=== PATIENT | female | born 1950 | race Caucasian/White ===

== ENCOUNTER 2024-07-20 10:39 | Inpatient (IN) | payer MEDICARE, OTHER ==
[~2024-07-20 10:39] MED LIST: ALBU18HF12 IH; ALPR0.5T8 PO; AMLO10TA55 PO; ATOR-2 PO; ESZO2TAB31 PO; FLUT12AE3 IH; LEVO25TA9 PO; LOSA-381 PO; METF-1211 PO; OMAL75SY SQ; OMEP40CA21 PO; QUET300T19 PO; QUET50TA24 PO; UMEC62.5 IH; VALB80CA PO
[2024-07-20] MEDS ORDERED: ONDANSETRON HCL 4 MG/2 ML VIAL IVP PRN (10:45)
[2024-07-20] MEDS ORDERED: ALBUTEROL SULFATE 2.5 MG/0.5 ML NEB SOLUTION NEB PRN (10:45)
[2024-07-20] MEDS: SODIUM CHLORIDE 0.9% 1,000 ML IV ONE (10:45)
[2024-07-20] MEDS ORDERED: DEXTROSE 50%-WATER 25 GM/50 ML SYRINGE IVP PRN (11:00)
[2024-07-20 13:30] VITALS: BP 137/62; PULSE 77; RESP 17; TEMP 98.7; O2SAT 96
[2024-07-20 14:15] LABS: BASOPHILS % (AUTO) 0.3 % (0.0-2.0); EOSINOPHILS % (AUTO) 1.3 % (1.0-6.0); HEMATOCRIT 28.5 % (36-46); HEMOGLOBIN 9.5 g/dL (12.0-16.0); LYMPHOCYTES # (AUTO) 0.7 K/uL (1.0-4.8); LYMPHOCYTES % (AUTO) 8.2 % (22.0-44.0); MEAN CORPUSCULAR HEMOGLOBIN 29.4 pg (26.0-34.0); MEAN CORPUSCULAR HGB CONC 33.3 G/dL (31.0-37.0); MEAN CORPUSCULAR VOLUME 88 fL (80-100); MONOCYTES # (AUTO) 0.5 K/uL (0.1-1.0); MONOCYTES % (AUTO) 6.3 % (2.0-9.0); NEUTROPHILS # (AUTO) 6.9 K/uL (1.8-7.7); NEUTROPHILS % (AUTO) 83.9 % (40.0-70.0); PLATELET COUNT (AUTO) 290 K/uL (150-450); RED BLOOD CELL COUNT(AUTO) 3.23 MIL/uL (4.00-5.20); RED CELL DISTRIBUTION WIDTH 18.8 % (11.5-14.5); WHITE BLOOD COUNT (AUTO) 8.3 K/uL (4.5-11.0)
[2024-07-20 14:41] LABS: CALCIUM, TOTAL 9.3 mg/dL (8.8-10.5); CREATININE 1.33 mg/dL (0.60-1.30); POTASSIUM 4.1 mmol/L (3.5-5.1); THYROID STIMULATING HORMONE 1.68 uIU/mL (0.36-3.74)
[2024-07-20] MEDS: OSELTAMIVIR PHOSPHATE 30 MG CAPSULE PO SCH (15:30)
[2024-07-20] MEDS: HEPARIN SODIUM,PORCINE 5,000 UNITS/ML VIAL SQ SCH (16:00)
[2024-07-20 19:26] LABS: APPEARANCE,URINE CLEAR (CLEAR); BILIRUBIN,URINE NEGATIVE (NEGATIVE); COLOR,URINE LIGHT YELLOW (YELLOW); GLUCOSE, URINE (UA) NEGATIVE (NEGATIVE); KETONES,URINE NEGATIVE (NEGATIVE); LEUKOCYTE ESTERASE ,URINE TRACE (NEGATIVE); NITRATE,URINE NEGATIVE (NEGATIVE); OCCULT BLOOD,URINE NEGATIVE (NEGATIVE); PROTEIN,URINE NEGATIVE (NEGATIVE); SPECIFIC GRAVITIY, URINE 1.009 (1.003-1.030); UROBILINOGEN,URINE <=1.0 mg/dL (<=1.0)
[2024-07-20 19:35] LABS: RBC,URINE 0-2 /HPF (0-2)
[2024-07-20 19:36] LABS: BACTERIA,URINE Few /HPF (None Seen); SQUAMOUS EPITHELIAL CELL,UR Few /LPF (None Seen)
[2024-07-20 19:44] VITALS: BP 152/63; PULSE 89; RESP 17; TEMP 100; O2SAT 96
[2024-07-20] MEDS: INSULIN LISPRO 100 UNITS/ML SQ PRN (20:42)
[2024-07-20] MEDS: ACETAMINOPHEN 325 MG TABLET PO PRN (20:43)
[2024-07-20] MEDS: DOCUSATE SODIUM 100 MG CAPSULE PO SCH (20:43)
[2024-07-20 22:51] LABS: GLUCOMETER DEV NAME(LOC) 6S.1D; GLUCOSE,POINT OF CARE 138 MG/DL (70-110)
[2024-07-20 22:51] LABS: GLUCOMETER DEV NAME(LOC) 6S.1D; GLUCOSE,POINT OF CARE 142 MG/DL (70-110)
[2024-07-21 05:37] VITALS: BP 148/62; PULSE 77; RESP 18; TEMP 99.8; O2SAT 95
[2024-07-21 06:41] LABS: GLUCOMETER DEV NAME(LOC) 6N.2B; GLUCOSE,POINT OF CARE 137 MG/DL (70-110)
[2024-07-21 08:21] VITALS: BP 152/71; PULSE 85; RESP 20; TEMP 99.6; O2SAT 96
[2024-07-21] MEDS: FAMOTIDINE 20 MG TABLET PO SCH (09:30)
[2024-07-21 12:10] LABS: GLUCOMETER DEV NAME(LOC) 6N.1B; GLUCOSE,POINT OF CARE 175 MG/DL (70-110)
[2024-07-21] MEDS ORDERED: QUET200T30 PO (14:07)
[2024-07-21] MEDS ORDERED: ESCI-8 PO (14:08)
[2024-07-21] MEDS: AmLODIPine BESYLATE 2.5 MG TABLET PO SCH (14:58)
[2024-07-21] MEDS: SODIUM CHLORIDE 0.9% 1,000 ML IV ONE (14:58)
[2024-07-21 18:21] LABS: GLUCOMETER DEV NAME(LOC) 6S.1D; GLUCOSE,POINT OF CARE 150 MG/DL (70-110)
[2024-07-21 19:15] VITALS: BP 178/81; PULSE 100; RESP 18; TEMP 99.5; O2SAT 93
[2024-07-21] MEDS ORDERED: QUEtiapine FUMARATE 200 MG TABLET PO SCH (21:00)
[2024-07-21] MEDS: QUEtiapine FUMARATE 200 MG TABLET PO SCH (21:12)
[2024-07-21 21:17] VITALS: BP 138/71; PULSE 99; RESP 18; TEMP 99.5; O2SAT 94
[2024-07-21 23:21] VITALS: TEMP 98
[2024-07-22 04:22] VITALS: BP 156/71; PULSE 91; RESP 18; TEMP 98.2; O2SAT 95
[2024-07-22 07:50] LABS: GLUCOMETER DEV NAME(LOC) 6N.2B; GLUCOSE,POINT OF CARE 180 MG/DL (70-110)
[2024-07-22 07:55] LABS: GLUCOMETER DEV NAME(LOC) 6N.1B; GLUCOSE,POINT OF CARE 142 MG/DL (70-110)
[2024-07-22 08:03] VITALS: BP 145/71; PULSE 84; RESP 18; TEMP 98.2; O2SAT 95
[2024-07-22 08:05] LABS: ANION GAP 10 mmol/L (8-16); CALCIUM, TOTAL 9.2 mg/dL (8.8-10.5); CARBON DIOXIDE 24 mmol/L (22-29); CHLORIDE 103 mmol/L (98-107); CREATININE 0.88 mg/dL (0.60-1.30); GLOMERULAR FILTR. RATE CALC > 60 mL/min (>60); GLUCOSE,RANDOM 143 mg/dL (70-110); POTASSIUM 3.7 mmol/L (3.5-5.1); SODIUM SERUM 137 mmol/L (136-145); UREA NITROGEN, BLOOD 17 mg/dL (7-18)
[2024-07-22] MEDS: ESCITALOPRAM OXALATE 10 MG TABLET PO SCH (08:08)
[2024-07-22 15:46] LABS: GLUCOMETER DEV NAME(LOC) 6N.1B; GLUCOSE,POINT OF CARE 160 MG/DL (70-110)
[2024-07-22 15:54] VITALS: BP 138/68; PULSE 82; RESP 18; TEMP 98; O2SAT 96
[2024-07-22 19:44] VITALS: BP 153/78; PULSE 90; RESP 20; TEMP 99.3; O2SAT 95
[2024-07-23 01:06] LABS: HEPATITIS C AB (EIA) Reactive (Non Reactive)
[2024-07-23 03:48] VITALS: BP 145/70; PULSE 88; RESP 18; TEMP 98.5; O2SAT 94
[2024-07-23 06:30] LABS: GLUCOMETER DEV NAME(LOC) 6N.1B; GLUCOSE,POINT OF CARE 110 MG/DL (70-110)
[2024-07-23 10:16] LABS: GLUCOMETER DEV NAME(LOC) 6S.1D; GLUCOSE,POINT OF CARE 205 MG/DL (70-110)
[2024-07-23 20:40] LABS: GLUCOMETER DEV NAME(LOC) 6S.2; GLUCOSE,POINT OF CARE 169 MG/DL (70-110)
[2024-07-24 02:31] VITALS: BP 144/78; PULSE 99; RESP 18; TEMP 98; O2SAT 96
[2024-07-24 02:46] LABS: GLUCOMETER DEV NAME(LOC) 6S.1D; GLUCOSE,POINT OF CARE 130 MG/DL (70-110)
[2024-07-24 15:51] VITALS: BP 136/55; PULSE 82; RESP 18; TEMP 98.1; O2SAT 96
[2024-07-24 20:00] VITALS: BP 137/69; PULSE 75; RESP 20; TEMP 98.7; O2SAT 95
[2024-07-24] MEDS: BENZONATATE 100 MG CAPSULE PO PRN (21:08)
[2024-07-24 21:40] LABS: GLUCOMETER DEV NAME(LOC) 6S.1D; GLUCOSE,POINT OF CARE 143 MG/DL (70-110)
[2024-07-24 21:46] LABS: GLUCOMETER DEV NAME(LOC) 6S.2; GLUCOSE,POINT OF CARE 164 MG/DL (70-110)
[2024-07-25 03:46] VITALS: BP 121/63; PULSE 73; RESP 18; TEMP 98.2; O2SAT 98
[2024-07-25] MEDS: LEVOFLOXACIN 750 MG TABLET PO SCH (08:17)
[2024-07-25 12:13] VITALS: BP 135/64; PULSE 79; RESP 18; TEMP 98.7; O2SAT 98
[2024-07-25 12:56] LABS: GLUCOMETER DEV NAME(LOC) 6N.2B; GLUCOSE,POINT OF CARE 110 MG/DL (70-110)
[2024-07-25] MEDS ORDERED: SODIUM CHLORIDE 0.9% 250 ML IV ONE (18:37)
[2024-07-25 19:55] LABS: GLUCOMETER DEV NAME(LOC) 6S.2; GLUCOSE,POINT OF CARE 114 MG/DL (70-110)
[2024-07-25 19:55] LABS: GLUCOMETER DEV NAME(LOC) 6S.2; GLUCOSE,POINT OF CARE 119 MG/DL (70-110)
[2024-07-25 20:24] VITALS: BP 117/62; PULSE 74; RESP 18; TEMP 98.5; O2SAT 97
[2024-07-25 22:01] LABS: GLUCOMETER DEV NAME(LOC) 6N.2B; GLUCOSE,POINT OF CARE 144 MG/DL (70-110)
[2024-07-26 05:04] VITALS: BP 134/60; PULSE 66; RESP 20; TEMP 98.4; O2SAT 98
[2024-07-26 05:35] LABS: GLUCOMETER DEV NAME(LOC) 6S.1D; GLUCOSE,POINT OF CARE 121 MG/DL (70-110)
[2024-07-26 08:31] VITALS: BP 142/67; PULSE 81; RESP 18; TEMP 98.5; O2SAT 96
[2024-07-26 12:06] LABS: GLUCOMETER DEV NAME(LOC) 6S.1D; GLUCOSE,POINT OF CARE 139 MG/DL (70-110)
[2024-07-26 18:01] LABS: GLUCOMETER DEV NAME(LOC) 6S.2; GLUCOSE,POINT OF CARE 106 MG/DL (70-110)
[2024-07-26 20:03] VITALS: BP 142/77; PULSE 100; RESP 20; TEMP 98.8; O2SAT 98
[2024-07-26 20:50] LABS: GLUCOMETER DEV NAME(LOC) 6S.1D; GLUCOSE,POINT OF CARE 128 MG/DL (70-110)
[2024-07-27 04:13] VITALS: BP 153/78; PULSE 99; RESP 20; TEMP 98.9; O2SAT 98
[2024-07-27 05:45] LABS: GLUCOMETER DEV NAME(LOC) 6S.2; GLUCOSE,POINT OF CARE 114 MG/DL (70-110)
[2024-07-27 08:08] VITALS: BP 153/78; PULSE 89; RESP 18; TEMP 98.7; O2SAT 98
[2024-07-27 09:47] VITALS: BP 144/68; PULSE 97; RESP 20; TEMP 98.4; O2SAT 98
[2024-07-27 15:59] VITALS: BP 146/75; PULSE 96; RESP 18; TEMP 99.1; O2SAT 97
[2024-07-27 17:46] LABS: GLUCOMETER DEV NAME(LOC) 6S.1D; GLUCOSE,POINT OF CARE 144 MG/DL (70-110)
[2024-07-27 20:25] VITALS: BP 141/77; PULSE 90; RESP 20; TEMP 97.7; O2SAT 97
[2024-07-27 21:35] LABS: GLUCOMETER DEV NAME(LOC) 6S.1D; GLUCOSE,POINT OF CARE 117 MG/DL (70-110)
[2024-07-27 22:00] LABS: GLUCOMETER DEV NAME(LOC) 6S.2; GLUCOSE,POINT OF CARE 146 MG/DL (70-110)
[2024-07-28 04:04] VITALS: BP 129/64; PULSE 74; RESP 18; TEMP 98.1; O2SAT 97
[2024-07-28 07:46] LABS: GLUCOMETER DEV NAME(LOC) 6S.2; GLUCOSE,POINT OF CARE 116 MG/DL (70-110)
[2024-07-28 08:57] VITALS: BP 128/57; PULSE 81; RESP 18; TEMP 98.1; O2SAT 97
[2024-07-28 11:55] LABS: GLUCOMETER DEV NAME(LOC) 6S.2; GLUCOSE,POINT OF CARE 146 MG/DL (70-110)
[2024-07-28 13:15] LABS: BASOPHILS % (AUTO) 1.2 % (0.0-2.0); EOSINOPHILS % (AUTO) 2.7 % (1.0-6.0); HEMATOCRIT 33.5 % (36-46); HEMOGLOBIN 10.8 g/dL (12.0-16.0); LYMPHOCYTES % (AUTO) 19.5 % (22.0-44.0); MEAN CORPUSCULAR HEMOGLOBIN 28.5 pg (26.0-34.0); MEAN CORPUSCULAR HGB CONC 32.3 G/dL (31.0-37.0); MEAN CORPUSCULAR VOLUME 88 fL (80-100); MONOCYTES # (AUTO) 0.5 K/uL (0.1-1.0); MONOCYTES % (AUTO) 8.6 % (2.0-9.0); NEUTROPHILS # (AUTO) 3.7 K/uL (1.8-7.7); PLATELET COUNT (AUTO) 410 K/uL (150-450); RED CELL DISTRIBUTION WIDTH 18.9 % (11.5-14.5); WHITE BLOOD COUNT (AUTO) 5.4 K/uL (4.5-11.0)
[2024-07-28 13:25] LABS: CALCIUM, TOTAL 9.2 mg/dL (8.8-10.5); CREATININE 1.26 mg/dL (0.60-1.30); POTASSIUM 4.1 mmol/L (3.5-5.1)
[2024-07-28 18:00] VITALS: BP 125/72; PULSE 89; RESP 18; TEMP 97.9; O2SAT 97
[2024-07-28 18:46] LABS: GLUCOMETER DEV NAME(LOC) 6N.2B; GLUCOSE,POINT OF CARE 116 MG/DL (70-110)
[2024-07-28 20:50] VITALS: BP 134/79; PULSE 90; RESP 18; TEMP 97.7; O2SAT 98
[2024-07-29 04:57] VITALS: BP 127/65; PULSE 84; RESP 18; TEMP 98.6; O2SAT 99
[2024-07-29 08:06] LABS: GLUCOMETER DEV NAME(LOC) 6N.2B; GLUCOSE,POINT OF CARE 163 MG/DL (70-110)
[2024-07-29 08:59] VITALS: BP 126/60; PULSE 87; RESP 18; TEMP 96.6; O2SAT 99
[2024-07-29 11:30] LABS: GLUCOMETER DEV NAME(LOC) 6S.1D; GLUCOSE,POINT OF CARE 187 MG/DL (70-110)
[2024-07-29 11:36] LABS: GLUCOMETER DEV NAME(LOC) 6N.2B; GLUCOSE,POINT OF CARE 150 MG/DL (70-110)
[2024-07-29 11:50] LABS: GLUCOMETER DEV NAME(LOC) 6S.2; GLUCOSE,POINT OF CARE 130 MG/DL (70-110)
[2024-07-29 14:54] VITALS: BP 139/85; PULSE 95; RESP 18; TEMP 98.3; O2SAT 97
[2024-07-29 19:42] VITALS: BP 113/59; PULSE 87; RESP 18; TEMP 98.3; O2SAT 97
[2024-07-29 22:56] LABS: GLUCOMETER DEV NAME(LOC) 6N.2B; GLUCOSE,POINT OF CARE 121 MG/DL (70-110)
[2024-07-29 22:56] LABS: GLUCOMETER DEV NAME(LOC) 6N.2B; GLUCOSE,POINT OF CARE 189 MG/DL (70-110)
[2024-07-30 04:10] VITALS: BP 121/63; PULSE 86; RESP 19; TEMP 98.6; O2SAT 98
[2024-07-30 07:15] VITALS: BP 110/52; PULSE 71; RESP 18; TEMP 98.2; O2SAT 99
[2024-07-30 07:40] LABS: GLUCOMETER DEV NAME(LOC) 6S.1D; GLUCOSE,POINT OF CARE 127 MG/DL (70-110)
[2024-07-30 14:16] LABS: GLUCOMETER DEV NAME(LOC) 6S.1D; GLUCOSE,POINT OF CARE 135 MG/DL (70-110)
[2024-07-30 16:09] VITALS: BP 108/63; PULSE 76; RESP 18; TEMP 98; O2SAT 99
[2024-07-30 18:16] LABS: GLUCOMETER DEV NAME(LOC) 6S.1D; GLUCOSE,POINT OF CARE 119 MG/DL (70-110)
[2024-07-30 20:15] VITALS: BP 119/61; PULSE 68; RESP 18; TEMP 98.8; O2SAT 99
[2024-07-31 04:07] VITALS: BP 119/58; PULSE 69; RESP 18; TEMP 98.1; O2SAT 98
[2024-07-31 07:41] VITALS: BP 142/79; PULSE 72; RESP 18; TEMP 97.5; O2SAT 100
[2024-07-31 18:39] VITALS: BP 113/53; PULSE 76; RESP 18; TEMP 97.8; O2SAT 100
[2024-07-31 19:06] LABS: GLUCOMETER DEV NAME(LOC) 6S.2; GLUCOSE,POINT OF CARE 148 MG/DL (70-110)
[2024-07-31 19:07] LABS: GLUCOMETER DEV NAME(LOC) 6S.2; GLUCOSE,POINT OF CARE 152 MG/DL (70-110)
[2024-07-31 19:56] VITALS: BP 122/58; PULSE 70; RESP 18; TEMP 98.1; O2SAT 99
[2024-08-01 04:15] VITALS: BP 115/51; PULSE 72; RESP 18; TEMP 98; O2SAT 98
[2024-08-01 06:55] LABS: BASOPHILS % (AUTO) 1.2 % (0.0-2.0); EOSINOPHILS % (AUTO) 4.6 % (1.0-6.0); HEMATOCRIT 34.9 % (36-46); HEMOGLOBIN 11.3 g/dL (12.0-16.0); LYMPHOCYTES # (AUTO) 1.3 K/uL (1.0-4.8); LYMPHOCYTES % (AUTO) 32.5 % (22.0-44.0); MEAN CORPUSCULAR HGB CONC 32.4 G/dL (31.0-37.0); MEAN CORPUSCULAR VOLUME 90 fL (80-100); MONOCYTES # (AUTO) 0.4 K/uL (0.1-1.0); MONOCYTES % (AUTO) 11.1 % (2.0-9.0); NEUTROPHILS % (AUTO) 50.6 % (40.0-70.0); PLATELET COUNT (AUTO) 301 K/uL (150-450); RED CELL DISTRIBUTION WIDTH 19.3 % (11.5-14.5); WHITE BLOOD COUNT (AUTO) 3.9 K/uL (4.5-11.0)
[2024-08-01 07:12] LABS: CALCIUM, TOTAL 9.8 mg/dL (8.8-10.5); CREATININE 1.22 mg/dL (0.60-1.30); POTASSIUM 4.2 mmol/L (3.5-5.1)
[2024-08-01 08:09] VITALS: BP 130/57; PULSE 63; RESP 18; TEMP 97.8; O2SAT 99
[2024-08-01 11:55] LABS: GLUCOMETER DEV NAME(LOC) 6S.2; GLUCOSE,POINT OF CARE 158 MG/DL (70-110)
[2024-08-01 15:32] VITALS: BP 115/59; PULSE 89; RESP 18; TEMP 98.5; O2SAT 97
[2024-08-01 20:31] LABS: GLUCOMETER DEV NAME(LOC) 6N.2B; GLUCOSE,POINT OF CARE 171 MG/DL (70-110)
[2024-08-01 21:14] VITALS: BP 132/66; PULSE 84; RESP 20; TEMP 99.5; O2SAT 99
[2024-08-02 03:26] LABS: GLUCOMETER DEV NAME(LOC) 6S.2; GLUCOSE,POINT OF CARE 136 MG/DL (70-110)
[2024-08-02 05:11] VITALS: BP 135/67; PULSE 77; RESP 18; TEMP 98; O2SAT 99
[2024-08-02 07:20] LABS: GLUCOMETER DEV NAME(LOC) 6S.2; GLUCOSE,POINT OF CARE 112 MG/DL (70-110)
[2024-08-02 08:21] VITALS: BP 134/65; PULSE 75; RESP 18; TEMP 98; O2SAT 97
[2024-08-02 12:42] LABS: GLUCOMETER DEV NAME(LOC) 6S.2; GLUCOSE,POINT OF CARE 140 MG/DL (70-110)
[2024-08-02 12:42] LABS: GLUCOMETER DEV NAME(LOC) 6S.1D; GLUCOSE,POINT OF CARE 129 MG/DL (70-110)
[2024-08-02 12:42] LABS: GLUCOMETER DEV NAME(LOC) 6S.2; GLUCOSE,POINT OF CARE 109 MG/DL (70-110)
[2024-08-02 12:42] LABS: GLUCOMETER DEV NAME(LOC) 6S.2; GLUCOSE,POINT OF CARE 120 MG/DL (70-110)
[2024-08-02 16:11] VITALS: BP 121/62; PULSE 78; RESP 18; TEMP 98; O2SAT 97
[2024-08-02 19:39] VITALS: BP 125/68; PULSE 68; RESP 18; TEMP 98.7; O2SAT 99
[2024-08-03 03:39] VITALS: BP 137/80; PULSE 71; RESP 18; TEMP 97.7; O2SAT 99
[2024-08-03 06:11] LABS: GLUCOMETER DEV NAME(LOC) 6S.2; GLUCOSE,POINT OF CARE 130 MG/DL (70-110)
[2024-08-03 08:37] VITALS: BP 130/69; PULSE 69; RESP 18; TEMP 94.8; O2SAT 99
[2024-08-03 16:00] VITALS: BP 154/85; PULSE 82; TEMP 97.7
[2024-08-03 17:05] LABS: GLUCOMETER DEV NAME(LOC) 6N.2B; GLUCOSE,POINT OF CARE 213 MG/DL (70-110)
[2024-08-03 17:05] LABS: GLUCOMETER DEV NAME(LOC) 6N.2B; GLUCOSE,POINT OF CARE 163 MG/DL (70-110)
[2024-08-03 17:05] LABS: GLUCOMETER DEV NAME(LOC) 6N.2B; GLUCOSE,POINT OF CARE 155 MG/DL (70-110)
[2024-08-03 19:40] VITALS: BP 122/57; PULSE 84; RESP 18; TEMP 99.1; O2SAT 99
[2024-08-03 20:06] LABS: GLUCOMETER DEV NAME(LOC) 6S.1D; GLUCOSE,POINT OF CARE 108 MG/DL (70-110)
[2024-08-03 20:06] LABS: GLUCOMETER DEV NAME(LOC) 6S.1D; GLUCOSE,POINT OF CARE 215 MG/DL (70-110)
[2024-08-03 23:46] LABS: GLUCOMETER DEV NAME(LOC) 6S.1D; GLUCOSE,POINT OF CARE 167 MG/DL (70-110)
[2024-08-04 04:19] VITALS: BP 122/64; PULSE 73; RESP 18; TEMP 97.4; O2SAT 98
[2024-08-04 08:01] VITALS: BP 118/58; PULSE 82; RESP 18; TEMP 97.8; O2SAT 97
[2024-08-04 08:46] LABS: GLUCOMETER DEV NAME(LOC) 6N.2B; GLUCOSE,POINT OF CARE 130 MG/DL (70-110)
[2024-08-04 17:10] LABS: GLUCOMETER DEV NAME(LOC) 6S.1D; GLUCOSE,POINT OF CARE 199 MG/DL (70-110)
[2024-08-04 17:10] LABS: GLUCOMETER DEV NAME(LOC) 6S.1D; GLUCOSE,POINT OF CARE 148 MG/DL (70-110)
[2024-08-04 20:14] VITALS: BP 117/57; PULSE 78; RESP 19; TEMP 98.5; O2SAT 99
[2024-08-05 00:11] LABS: GLUCOMETER DEV NAME(LOC) 6S.1D; GLUCOSE,POINT OF CARE 154 MG/DL (70-110)
[2024-08-05 04:46] VITALS: BP 125/58; PULSE 67; RESP 18; TEMP 98.4; O2SAT 98
[2024-08-05 08:12] VITALS: BP 125/52; PULSE 68; RESP 18; TEMP 98.5; O2SAT 98
[2024-08-05 08:26] LABS: BASOPHILS % (AUTO) 1.3 % (0.0-2.0); EOSINOPHILS % (AUTO) 3.3 % (1.0-6.0); HEMATOCRIT 34.3 % (36-46); HEMOGLOBIN 11.4 g/dL (12.0-16.0); LYMPHOCYTES % (AUTO) 20.7 % (22.0-44.0); MEAN CORPUSCULAR HEMOGLOBIN 29.8 pg (26.0-34.0); MEAN CORPUSCULAR HGB CONC 33.3 G/dL (31.0-37.0); MEAN CORPUSCULAR VOLUME 90 fL (80-100); MONOCYTES # (AUTO) 0.5 K/uL (0.1-1.0); MONOCYTES % (AUTO) 10.1 % (2.0-9.0); NEUTROPHILS # (AUTO) 3.1 K/uL (1.8-7.7); NEUTROPHILS % (AUTO) 64.6 % (40.0-70.0); PLATELET COUNT (AUTO) 291 K/uL (150-450); RED BLOOD CELL COUNT(AUTO) 3.83 MIL/uL (4.00-5.20); RED CELL DISTRIBUTION WIDTH 19.5 % (11.5-14.5); WHITE BLOOD COUNT (AUTO) 4.8 K/uL (4.5-11.0)
[2024-08-05 08:42] LABS: CALCIUM, TOTAL 9.6 mg/dL (8.8-10.5); POTASSIUM 4.2 mmol/L (3.5-5.1)
[2024-08-05 11:35] LABS: GLUCOMETER DEV NAME(LOC) 6N.2B; GLUCOSE,POINT OF CARE 152 MG/DL (70-110)
[2024-08-05 15:54] VITALS: BP 111/59; PULSE 82; RESP 18; TEMP 98.9; O2SAT 98
[2024-08-05 16:50] LABS: GLUCOMETER DEV NAME(LOC) 6N.2B; GLUCOSE,POINT OF CARE 127 MG/DL (70-110)
[2024-08-05 18:06] LABS: HEPATITIS C RT-PCR,QNT HCV Not Detected IU/mL
[2024-08-05 19:37] VITALS: BP 122/58; PULSE 84; RESP 18; TEMP 99.1; O2SAT 97
[2024-08-05 20:20] LABS: GLUCOMETER DEV NAME(LOC) 6S.1D; GLUCOSE,POINT OF CARE 119 MG/DL (70-110)
[2024-08-06 02:06] LABS: GLUCOMETER DEV NAME(LOC) 6N.2B; GLUCOSE,POINT OF CARE 188 MG/DL (70-110)
[2024-08-06 05:10] VITALS: BP 122/60; PULSE 77; RESP 18; TEMP 98.2; O2SAT 99
[2024-08-06 06:25] LABS: GLUCOMETER DEV NAME(LOC) 6N.2B; GLUCOSE,POINT OF CARE 120 MG/DL (70-110)
[2024-08-06 08:48] VITALS: BP 138/65; PULSE 78; RESP 19; TEMP 98.1; O2SAT 98
[2024-08-06 14:36] LABS: GLUCOMETER DEV NAME(LOC) 6S.2; GLUCOSE,POINT OF CARE 149 MG/DL (70-110)
[2024-08-06 20:00] VITALS: BP 112/71; PULSE 83; RESP 18; TEMP 99.1; O2SAT 96
[2024-08-06 21:07] VITALS: BP 112/71; PULSE 83; RESP 18; TEMP 99.1; O2SAT 96
[2024-08-06 22:25] LABS: GLUCOMETER DEV NAME(LOC) 6N.2B; GLUCOSE,POINT OF CARE 160 MG/DL (70-110)
[2024-08-07 04:29] VITALS: BP 131/62; PULSE 67; RESP 20; TEMP 98.4; O2SAT 97
[2024-08-07 08:07] VITALS: BP 133/50; PULSE 59; RESP 18; TEMP 98; O2SAT 99
[2024-08-07 12:26] LABS: GLUCOMETER DEV NAME(LOC) 6S.1D; GLUCOSE,POINT OF CARE 142 MG/DL (70-110)
[2024-08-07 16:06] VITALS: BP 133/61; PULSE 70; RESP 18; TEMP 98.4; O2SAT 97
[2024-08-07 17:41] LABS: GLUCOMETER DEV NAME(LOC) 6N.2B; GLUCOSE,POINT OF CARE 114 MG/DL (70-110)
[2024-08-07 19:25] VITALS: BP 135/68; PULSE 72; RESP 18; TEMP 98.7; O2SAT 98
[2024-08-07 19:31] LABS: GLUCOMETER DEV NAME(LOC) 6S.1D; GLUCOSE,POINT OF CARE 102 MG/DL (70-110)
[2024-08-07 23:26] LABS: GLUCOMETER DEV NAME(LOC) 6S.2; GLUCOSE,POINT OF CARE 166 MG/DL (70-110)
[2024-08-08 04:00] VITALS: BP 143/69; PULSE 62; RESP 20; TEMP 98.9; O2SAT 99
[2024-08-08 15:53] LABS: BASOPHILS % (AUTO) 2.7 % (0.0-2.0); EOSINOPHILS % (AUTO) 4.6 % (1.0-6.0); HEMATOCRIT 33.2 % (36-46); HEMOGLOBIN 10.8 g/dL (12.0-16.0); MEAN CORPUSCULAR HEMOGLOBIN 29.3 pg (26.0-34.0); MEAN CORPUSCULAR HGB CONC 32.6 G/dL (31.0-37.0); MEAN CORPUSCULAR VOLUME 90 fL (80-100); MONOCYTES # (AUTO) 0.4 K/uL (0.1-1.0); NEUTROPHILS # (AUTO) 1.6 K/uL (1.8-7.7); NEUTROPHILS % (AUTO) 49.7 % (40.0-70.0); PLATELET COUNT (AUTO) 250 K/uL (150-450); RED BLOOD CELL COUNT(AUTO) 3.69 MIL/uL (4.00-5.20); RED CELL DISTRIBUTION WIDTH 20.2 % (11.5-14.5); WHITE BLOOD COUNT (AUTO) 3.3 K/uL (4.5-11.0)
[2024-08-08 16:00] LABS: CALCIUM, TOTAL 9.3 mg/dL (8.8-10.5); CREATININE 1.1 mg/dL (0.60-1.30); POTASSIUM 4.4 mmol/L (3.5-5.1)
[2024-08-08 16:06] VITALS: BP 114/61; PULSE 75; RESP 24; TEMP 98.2; O2SAT 99
[2024-08-08] MEDS: POLYETHYLENE GLYCOL 3350 17 GM PACKET PO SCH (16:19)
[2024-08-08] MEDS: MINERAL OIL 133 ML ENEMA PR ONE (16:20)
[2024-08-08 19:49] VITALS: BP 111/57; PULSE 74; RESP 18; TEMP 99; O2SAT 99
[2024-08-08 20:41] LABS: GLUCOMETER DEV NAME(LOC) 6N.2B; GLUCOSE,POINT OF CARE 126 MG/DL (70-110)
[2024-08-08 20:41] LABS: GLUCOMETER DEV NAME(LOC) 6N.2B; GLUCOSE,POINT OF CARE 157 MG/DL (70-110)
[2024-08-08 20:46] LABS: GLUCOMETER DEV NAME(LOC) 6S.1D; GLUCOSE,POINT OF CARE 162 MG/DL (70-110)
[2024-08-08 20:46] LABS: GLUCOMETER DEV NAME(LOC) 6S.2; GLUCOSE,POINT OF CARE 108 MG/DL (70-110)
[2024-08-08 22:26] LABS: APPEARANCE,URINE HAZY (CLEAR); BILIRUBIN,URINE NEGATIVE (NEGATIVE); COLOR,URINE LIGHT YELLOW (YELLOW); GLUCOSE, URINE (UA) NEGATIVE (NEGATIVE); KETONES,URINE NEGATIVE (NEGATIVE); LEUKOCYTE ESTERASE ,URINE TRACE (NEGATIVE); NITRATE,URINE NEGATIVE (NEGATIVE); OCCULT BLOOD,URINE NEGATIVE (NEGATIVE); PH,URINE 7.5 (5.0-8.0); PROTEIN,URINE NEGATIVE (NEGATIVE); SPECIFIC GRAVITIY, URINE 1.009 (1.003-1.030); UROBILINOGEN,URINE <=1.0 mg/dL (<=1.0)
[2024-08-08 22:34] LABS: BACTERIA,URINE Moderate /HPF (None Seen); RBC,URINE 0-2 /HPF (0-2); WBC,URINE 0-2 /HPF (0-5)
[2024-08-08 22:35] LABS: SQUAMOUS EPITHELIAL CELL,UR Few /LPF (None Seen)
[2024-08-08 22:36] LABS: GLUCOMETER DEV NAME(LOC) 6S.2; GLUCOSE,POINT OF CARE 101 MG/DL (70-110)
[2024-08-09 04:53] VITALS: BP 105/57; PULSE 69; RESP 19; TEMP 97.7; O2SAT 98
[2024-08-09 06:51] LABS: GLUCOMETER DEV NAME(LOC) 6S.2; GLUCOSE,POINT OF CARE 120 MG/DL (70-110)
[2024-08-09 07:28] VITALS: BP 111/58; PULSE 67; RESP 18; TEMP 98; O2SAT 98
[2024-08-09] MEDS ORDERED: AMLO2.5T96 PO (11:01)
[2024-08-09] MEDS ORDERED: FAMO20 PO (11:01)
[2024-08-09] MEDS ORDERED: ACET650S24 PR (11:03)
[2024-08-09] MEDS ORDERED: BENZ-227 PO (11:03)
[2024-08-09] MEDS ORDERED: INSU100V SQ (11:07)
[2024-08-09] MEDS ORDERED: POLY17PO47 PO (11:08)
== END 2024-08-09 10:30 | DRG 193 ==
LOC: 6S 10:39 → 6N 13:30 → 6S 08-02 17:27
PROVIDERS: ADMIT Internal Medicine; ATTEND Internal Medicine
PROC: GZ56ZZZ Individual Psychotherapy, Supportive (ICD-10-PCS; principal; 2024-07-21)
PROC: GZ52ZZZ Individual Psychotherapy, Cognitive (ICD-10-PCS; 2024-07-21)
DX: J10.1 Influenza due to other identified influenza virus with other respiratory manifestations (principal); N17.0 Acute kidney failure with tubular necrosis; I10 Essential (primary) hypertension; E11.9 Type 2 diabetes mellitus without complications; E03.9 Hypothyroidism, unspecified; F25.1 Schizoaffective disorder, depressive type; G24.01 Drug induced subacute dyskinesia; K59.00 Constipation, unspecified; Z88.1 Allergy status to other antibiotic agents; Z88.5 Allergy status to narcotic agent; Z88.6 Allergy status to analgesic agent; Z88.8 Allergy status to other drugs, medicaments and biological substances; Z79.899 Other long term (current) drug therapy
CPT/HCPCS: 71045; 74018; 80048; 81001; 82140; 82962; 84443; 85025; 86803; 87070; 87086; 87205; 87340; 87522; 97110; 97167; 97530; 97535; J1644; J7030; J7050; 36415-L1; 36415-TC